=== PATIENT | female | born 1985 | race Two or more races ===

== ENCOUNTER 2025-04-08 22:04 | Emergency (ER) | payer SELFPAY ==
[~2025-04-08] VITALS: Ht 167.6 cm; Wt 90.7 kg
[2025-04-08 22:08] VITALS: PULSE 120
[2025-04-08 22:44] VITALS: BP 131/87; RESP 18; TEMP 98; O2SAT 98
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
[2025-04-08] MEDS: HYDROcodone-ACET 5/325MG TAB PO ONE (23:08)
--- NOTE | 2025-04-08 23:35 | DVH ---
CLINICAL INDICATION: left foot pain TECHNIQUE: XY L FOOT 3 VIEW XRAY Comparison: None FINDINGS/IMPRESSION: : There is no evidence of acute fracture or dislocation. Plantar calcaneal enthesopathy. Soft tissues are unremarkable.
[2025-04-08] MEDS ORDERED: ACET500T58 PO (23:40)
== END 2025-04-08 23:45 | disposition home or self-care (01) ==
LOC: ER 22:04 → EDBD 22:04 → ER 23:45
DX: S90.32XA Contusion of left foot, initial encounter (principal); V89.2XXA Person injured in unspecified motor-vehicle accident, traffic, initial encounter; Y93.89 Activity, other specified; Y92.89 Other specified places as the place of occurrence of the external cause; Y99.8 Other external cause status
CPT/HCPCS: 73630